=== PATIENT | female | born 1965 | race Caucasian/White ===

== ENCOUNTER → 2016-09-11 | Outpatient (CLI) | payer OTHER | LOC: HEART 5 08:24 | DX: R06.02 Shortness of breath (principal); R94.31 Abnormal electrocardiogram [ECG] [EKG]; R06.00 Dyspnea, unspecified; I10 Essential (primary) hypertension | CPT/HCPCS: 78452; 93306; A9502; J2785 ==

== ENCOUNTER 2021-12-03 07:00 | Emergency (ER) | payer OTHER ==
[~2021-12-03 07:00] MED LIST: IBUPROFEN600 MG PO
[2021-12-03 08:12] LABS: HEMOGLOBIN 13.2 gm/dl (12.3-15.3); RED BLOOD COUNT 4.82 M/UL (4.00-5.10); WHITE BLOOD COUNT 12.2 K/UL (4.5-11.0)
[2021-12-03 08:34] LABS: BUN/CREATININE RATIO 21 (0-10)
[2021-12-03] MEDS ORDERED: PERCOCET 5/325 T1 EA PO (09:32)
== END 2021-12-03 09:54 | disposition home or self-care (01) ==
LOC: ER1 07:00
PROVIDERS: Family Medicine
DX: N83.8 Other noninflammatory disorders of ovary, fallopian tube and broad ligament (principal); I25.10 Atherosclerotic heart disease of native coronary artery without angina pectoris; I10 Essential (primary) hypertension; E11.43 Type 2 diabetes mellitus with diabetic autonomic (poly)neuropathy; K31.84 Gastroparesis; Z90.89 Acquired absence of other organs; Z87.19 Personal history of other diseases of the digestive system
CPT/HCPCS: 80053; 83690; 85025; 96361; 96374; 96375; 99284; J1885; J2405

== ENCOUNTER → 2021-12-19 | Outpatient (CLI) | payer OTHER ==
[~2021-12-19] MED LIST changes: +CARAFATE1 GM PO; +FERROUS GLUCON324 M1 PO; +GLUCOPHAGE XR500 M1 PO; +HYDROCODON-ACE1 EAC4 PO; +IBU600 MG PO; +LISINOPRIL10 MG PO; +NEXIUM40 MG PO; +PERCOCET 5/325 T1 EA PO; +PREPARATION H1 EAC3 TP; +TYLENOL EXTRA500 MG PO; +VITAMIN D21250 MCG PO
[2021-12-19 11:09] LABS: HEMOGLOBIN 15.5 gm/dl (12.3-15.3); RED BLOOD COUNT 5.54 M/UL (4.00-5.10); WHITE BLOOD COUNT 14.8 K/UL (4.5-11.0)
[2021-12-19 11:32] LABS: BUN/CREATININE RATIO 44 (0-10)
== END ==
LOC: OPSV2 10:00
PROVIDERS: Obstetrics & Gynecology
DX: Z01.818 Encounter for other preprocedural examination (principal); R10.9 Unspecified abdominal pain
CPT/HCPCS: 71046; 80053; 81001; 82962; 85025; 87086; 93005

== ENCOUNTER → 2021-12-20 | Day surgery (SDC) | payer OTHER | END | disposition home or self-care (01) | LOC: OR 06:01 | DX: C54.1 Malignant neoplasm of endometrium (principal); N83.8 Other noninflammatory disorders of ovary, fallopian tube and broad ligament; I25.10 Atherosclerotic heart disease of native coronary artery without angina pectoris; E11.319 Type 2 diabetes mellitus with unspecified diabetic retinopathy without macular edema; I10 Essential (primary) hypertension; E78.5 Hyperlipidemia, unspecified; E66.9 Obesity, unspecified; Z68.23 Body mass index [BMI] 23.0-23.9, adult | CPT/HCPCS: 82962; 87070; 87205; J1100; J1170; J2001; J2250; J2405; J2704; J2795; J3010 ==

== ENCOUNTER 2021-12-22 13:27 | Emergency (ER) | payer OTHER ==
[~2021-12-22 13:27] MED LIST changes: -PREPARATION H1 EAC3 TP
[2021-12-22] MEDS ORDERED: HYDROCODON-ACE1 EAC4 PO (15:59)
[2021-12-22] MEDS ORDERED: PREPARATION H1 EAC3 TP (15:59)
== END 2021-12-22 16:35 | disposition home or self-care (01) ==
LOC: ER1 13:27
DX: K64.9 Unspecified hemorrhoids (principal); E11.9 Type 2 diabetes mellitus without complications; I10 Essential (primary) hypertension; I25.10 Atherosclerotic heart disease of native coronary artery without angina pectoris; E78.5 Hyperlipidemia, unspecified
CPT/HCPCS: 99282